=== PATIENT | male | born 1950 | race African-American/Black ===

== ENCOUNTER → 2017-01-28 | Outpatient (CLI) | payer OTHER ==
--- NOTE | 2017-02-01 09:34 | EEG PRO FEE REPORT ---
EEG INTERPRETATION PATIENT NAME: BETTY MALHOTRA ROOM#: ORDER#: [id number] DATE OF STUDY: 01/28/2017 : 1950 REFERRING MD: YANI WALDRON M.D. DIAGNOSIS: Visual disturbances REPORT The background activity is 8-9 Hz alpha with a lot of superimposed frontal muscle artifact. No clear focal slowing, amplitude asymmetry, or epileptiform discharges are identified. IMPRESSION Normal EEG with excess motion artifact at times. INTERPRETING PHYSICIAN: MOISES PELAYO M.D. /: [id number] TT: [id number] ID: [id number] /: [id number] TD: [id number] JOB: [id number] cc:Sarah AGOSTO M.D. >
== END ==
LOC: NEURO 12:55
PROVIDERS: ATTEND Pediatrics
DX: H53.10 Unspecified subjective visual disturbances (principal)
CPT/HCPCS: 95819